=== PATIENT | female | born 1995 | race Two or more races ===

== ENCOUNTER 2016-10-02 17:14 | Emergency (ER) | payer BC ==
--- NOTE | ~2016-10-02 | CR63 ---
[facility]. [facility] A Service of [facility] & [facility] RADIOLOGY TEXT RESULTS PATIENT: RA WALKER E LOCATION: SED : [birth year] UNIT #: [id number] AGE: [address]: Evan Nichols SEX: F ORDER DR: [id number] [address] [address] [id number] MR#: [id number] Acc #: [id number] NAME: RA WALKER : 1995 SEX: F STUDY DATE/TIME: 10/02/2016 17:48 UNIT: SED ROOM: STUDY DESCRIPTION: CR Chest 2 View Attending Physician: Evan Nichols P.A.-C. Ordering Physician: Evan Nichols P.A.-C. MEDICAL IMAGING REPORT This report is preliminary unless electronic signature is present. EXAM Chest PA and lateral 10/02/2016 HISTORY Chest pain, left arm numbness and whole body tingling beginning today. FINDINGS PA and lateral examination of the chest upright shows a good expansion of the parenchyma with a normal distribution of the pulmonary vascularity. There is no indication of congestion, effusion, infiltrate, tumor, or nodular density. The pleural reflections and diaphragmatic contours are normal. The cardiac silhouette and mediastinal anatomy is within normal limits. IMPRESSION Normal chest. Dictated by... Kunal Neville M.D. THIS IS AN ELECTRONICALLY VERIFIED REPORT Kunal Neville M.D. at 10/04/2016 6:18 AM KRT/to TD: 10/03/2016 13:25 JOB #: [id number] MEDICAL IMAGING REPORT Page 1 of 1
--- NOTE | ~2016-10-02 | EKG ---
PATIENT: RA WALKER UNIT #: [id number] Ventricular Rate: 64 BPM Atrial Rate: 64 BPM P-R Interval: 120 ms QRS Duration: 90 ms Q-T Interval: 418 ms QTC Calculation(Bezet): 431 ms P [place]: 23 degrees Calculated R [place]: 66 degrees Calculated T [place]: 51 degrees Diagnosis Line: Normal sinus rhythm Diagnosis Line: Normal ECG Diagnosis Line: No previous ECGs available Diagnosis Line: Confirmed by EZEQUIEL VILLA MD ([id number]) on Diagnosis Line: 10/04/2016 3:51:10 PM INTERPRETING MD: DAISY HI
[2016-10-02 18:02] LABS: BASOPHIL# 0.1 X10e3 (0-0.3); BASOPHIL% 0.8 % (0-2.5); EOSINOPHIL% 0.4 % (0.0-7.0); HEMATOCRIT 35.9 % (35.0-45.0); HEMOGLOBIN 11.6 gm/dL (12.0-16.0); LYMPHOCYTE# 1.5 X10e3 (1.0-3.5); LYMPHOCYTE% 17.9 % (17.0-45.0); MEAN CELL VOLUME 68.4 FL (83-96); MEAN CORPUSCULAR HEMOGLOBIN 22.2 PG (28-34); MEAN CORPUSCULAR HGB CONC 32.4 g/dL (30-36); MEAN PLATELET VOLUME 8.4 FL (6.5-11.5); MONOCYTE# 0.5 X10e3 (0-1.0); NEUTROPHIL# 6.4 X10e3 (1.5-7.1); NEUTROPHIL% 74.9 % (40-75); PLATELET COUNT 386 X10e3 (140-420); RED BLOOD COUNT 5.25 X10e (3.90-5.30); RED CELL DISTRIBUTION WIDTH 18.5 % (11.0-15.5); WHITE BLOOD COUNT 8.6 X10e3 (4.0-10.5)
[2016-10-02 18:17] LABS: DIFF IND NO
[2016-10-02 18:18] LABS: BUN/CREATININE RATIO 15.71; CREATININE SERUM 0.7 mg/dL (0.6-1.4); GLOM FILT RATE Estimated 124.7 mL/min (>60); POTASSIUM 3.6 mmol/L (3.5-5.1)
[2016-10-02 18:28] LABS: URINE SOURCE CLEAN CATCH
[2016-10-02 18:33] LABS: URINE APPEARANCE CLEAR; URINE BILIRUBIN NEG (NEG); URINE BLOOD TRACE-INTACT (NEG); URINE COLOR YELLOW; URINE GLUCOSE NEG (NORM); URINE KETONE TRACE (NEG); URINE LEUKOCYTE ESTERASE NEG (NEG); URINE NITRATE NEG (NEG); URINE PROTEIN NEG (NEG); URINE SPECIFIC GRAVITY >=1.030 (1.003-1.035); URINE UROBILINOGEN 0.2 MG/DL (NORM)
[2016-10-02 18:34] LABS: MICRO INDICATED? YES
[2016-10-02 18:41] LABS: AMPHETAMINE NEG (NEG); BARBITURATES NEG (NEG); BENZODIAZEPINES NEG (NEG); COCAINE NEG (NEG); MARIJUANA NEG (NEG); OPIATES NEG (NEG); TRICYCLIC ANTIDEPRESSANTS NEG (NEG); U METHADONE NEG (NEG)
[2016-10-02 18:48] LABS: CULTURE INDICATED? YES; URINE BACTERIA 1+ (NEG)
[2016-10-02 18:49] LABS: URINE MUCUS PRESENT; URINE SQUAMOUS EPITHELIAL CELL FEW /[HPF]
[2016-10-02 19:01] LABS: POC - CKMB <1.0 ng/mL (0.0-7.9); POC - TROPONIN <0.05 ng/mL (<=0.05)
== END 2016-10-02 19:02 | disposition home or self-care (01) ==
LOC: SED 17:14
PROVIDERS: Physician Assistant
DX: F41.0 Panic disorder [episodic paroxysmal anxiety] (principal); Z88.0 Allergy status to penicillin
CPT/HCPCS: 36415; 71020; 80048; 80307; 81003; 82553; 84484; 84703; 85025; 87086; 93005; 99285